=== PATIENT | female | born 1995 | race Caucasian/White ===

== ENCOUNTER 2017-03-24 14:31 | Emergency (ER) | payer SELFPAY ==
[~2017-03-24] VITALS: Ht 160 cm; Wt 74.1 kg
[~2017-03-24 14:31] MED LIST: NOCURR
[2017-03-24 15:31] VITALS: BP 126/75
[2017-03-24 15:40] LABS: APPEARANCE,URINE CLOUDY (CLEAR); GLUCOSE, URINE (UA) NEGATIVE (NEGATIVE); KETONES,URINE NEGATIVE (NEGATIVE); LEUKOCYTE ESTERASE ,URINE NEGATIVE (NEGATIVE); OCCULT BLOOD,URINE MODERATE (NEGATIVE); PROTEIN,URINE NEGATIVE (NEGATIVE)
[2017-03-24 15:43] LABS: ADD UA MICROSCOPIC YES
[2017-03-24 15:55] LABS: SQUAMOUS EPITHELIAL CELL,UR Few /LPF (None Seen)
[2017-03-24] MEDS ORDERED: SULFAMETHOX/TRIMETH DS 800-160 MG/TABLET PO ONE (16:15)
[2017-03-24] MEDS ORDERED: MetroNIDAZOLE 250 MG TABLET PO ONE (16:15)
== END 2017-03-24 16:16 | disposition home or self-care (01) ==
LOC: EMS 14:32
DX: N39.0 Urinary tract infection, site not specified (principal); N76.0 Acute vaginitis
CPT/HCPCS: 81025; 87086; 99284